=== PATIENT | male | born 2000 | race Caucasian/White ===

== ENCOUNTER 2020-02-23 08:08 | Outpatient (REF) | payer OTHER, SELFPAY | END 2020-02-23 08:09 | disposition home or self-care (01) | LOC: HO.LAB 08:08 | PROVIDERS: Visit Provider Internal Medicine | DX: Z20.828 Contact with and (suspected) exposure to other viral communicable diseases (principal) | CPT/HCPCS: C9803; U0003 ==

== ENCOUNTER 2020-04-25 07:47 | Outpatient (REF) | payer OTHER, SELFPAY | END 2020-04-25 07:48 | disposition home or self-care (01) | LOC: HO.LAB 07:47 | PROVIDERS: PCP Pediatrics; Visit Provider Internal Medicine | DX: Z20.822 Contact with and (suspected) exposure to COVID-19 (principal) | CPT/HCPCS: 36415; C9803; U0003 ==

== ENCOUNTER 2021-03-06 18:32 | Emergency (ER) | payer OTHER, SELFPAY ==
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
[2021-03-06] MEDS: Ondansetron ODT 4 MG TAB.RAPDIS TRANSLINGU (21:24)
[2021-03-06 21:26] VITALS: BP 158/96; PULSE 84; RESP 18; TEMP 36.9; O2SAT 99; BMI 28.2
== END 2021-03-06 21:33 | disposition home or self-care (01) ==
PROVIDERS: Emergency Provider Internal Medicine
DX: S16.1XXA Strain of muscle, fascia and tendon at neck level, initial encounter (principal); V86.05XA Driver of 3- or 4- wheeled all-terrain vehicle (ATV) injured in traffic accident, initial encounter; Y93.I9 Activity, other involving external motion; Y92.9 Unspecified place or not applicable; Y99.9 Unspecified external cause status
CPT/HCPCS: 99283

== ENCOUNTER 2023-05-31 11:26 | Emergency (ER) | payer OTHER, SELFPAY ==
--- NOTE | ~2023-05-31 | CT_ITS ---
EXAMINATION: CT MAXILLOFACIAL WITHOUT CONTRAST CLINICAL INFORMATION: Right-sided mastoid and facial swelling. COMPARISON: None available. TECHNIQUE: Multidetector helical imaging was performed in the axial plane without and following the administration of 85 mL of Omnipaque 350 intravenous contrast. Generation of coronal and sagittal reformatted images. This CT examination was performed using dose optimization techniques as appropriate, variously including the following: *Automated exposure control *Adjustment of mA and/or kV according to patient size (this includes techniques or standardized protocols for targeted exams where dose is matched to indication/reason for exam; i.e. extremities or head) *Use of iterative reconstruction technique DLP: 311 mGy-cm FINDINGS: FRONTAL SINUSES AND DRAINAGE PATHWAYS: The frontal sinuses are clear. The frontoethmoidal recesses are patent. MAXILLARY SINUSES AND DRAINAGE PATHWAYS: Mild mucosal thickening of the maxillary sinuses. The maxillary ostia and infundibula are patent. ETHMOID SINUSES: Mild mucosal thickening of the ethmoid air cells. The ethmoid roofs appear symmetric and intact. SPHENOID SINUS AND DRAINAGE PATHWAYS: Minimal mucosal thickening of the sphenoid sinus. The sphenoethmoidal recesses are patent. The carotid canals are normally covered by bone. NASAL PASSAGE: Mild mucosal thickening of the nasal passages. Mild leftward nasal septal deviation. ORBITS: Normal appearance of the osseous orbits. The lamina papyracea are intact. No significant preseptal or retrobulbar edema. Normal appearance of the globes. Normal symmetric appearance of the extraocular musculature. No abnormalities of the intraconal or extraconal adipose tissue. Normal appearance of the optic nerve sheaths. Normal appearance of the lacrimal glands. No orbital fluid collections. No abnormalities of the orbital apices. TEMPOROMANDIBULAR JOINTS: The temporomandibular joints remain well aligned. Normal appearance of the temporomandibular joints. ADDITIONAL RELEVANT FINDINGS: Moderate hyperemic edema of the right-sided external ear and superior periauricular soft tissues. There is an apparent peripherally enhancing collection within the superior right-sided appears to soft tissues, measuring approximately 2.5 x 1.3 x 1.7 cm. Mild smooth mucosal thickening of the right external auditory canal. No demonstrated associated osseous erosions. No evidence of maxillofacial bone fractures. The zygomatic arches remain intact. No nasal bone fracture. No evidence of mandibular or maxillary fracture. No significant maxillary/mandibular periapical disease. Mild right-sided mastoid effusion. The left-sided mastoid air cells and middle ear cavity remain well aerated. Congenital nonfusion of the posterior arch of C1. Limited evaluation of the intracranial structures without significant abnormalities. The premaxillary, retromaxillary, pterygopalatine fossa, temporal fossa, and parapharyngeal adipose tissue is maintained. No demonstrated soft tissue abnormalities within the intrinsic tissues of the tongue. CT/CT facial bones w IV con IMPRESSION: 1. There appears to be a small peripherally enhancing collection within the superior right-sided periauricular soft tissues,, suggestive of developing abscess formation. No demonstrated associated osseous erosions. Small right-sided mastoid effusion. 2. Mild sinonasal mucosal disease. Mild leftward nasal septal deviation.
[2023-05-31 11:42] VITALS: BP 160/83; PULSE 102; RESP 20; TEMP 37.1; O2SAT 98; BMI 32.3
--- NOTE | 2023-05-31 11:45 | ED_ITS ---
HPI - General Adult General Chief complaint: Ear Problems Stated complaint: cellulitis on face spreading to eye Time Seen by Provider: 05/31/23 17:34 Source: patient Mode of arrival: ambulatory Limitations: no limitations History of Present Illness HPI narrative: Patient on diabetic noticed small swelling and redness at the tragus of right ear about a week ago seen a PP at urgent care who prescribed him Augmentin for last 2 days patient noticed swelling has increased and fluctuant and spreading to the face and the jaw unable to open his mouth because of pain no fever no chills had similar infection but less severe about 5 years ago no history of MRSA infection Related Data Previous Rx's Medication Instructions Recorded cephalexin 500 mg capsule 500 mg PO QID 10 days #40 caps 05/31/23 doxycycline hyclate 100 mg tablet 100 mg PO BID #20 tabs 05/31/23 ibuprofen 600 mg tablet 600 mg PO Q6H PRN fever or pain 05/31/23 #30 tabs Allergies Allergy/AdvReac Type Severity Reaction Status Date / Time No Known Allergies Allergy Verified 05/31/23 11:47 Review of Systems 2 Review of Systems: Yes all other systems are reviewed and are negative [facility] Social History Social History Alcohol intake: current Alcohol intake frequency: 0-2 drinks per day Smoked in Last 30 Days: No Use of substances other than those prescribed or required for medical reasons: No Advance Directives: No Advance Directives Information Provided: Yes Physical Exam ED Vital Signs: Vital Signs - 24 hr 05/31/23 11:42 05/31/23 17:22 05/31/23 17:54 Temperature 98.8 F 98.8 F 99.4 F Pulse Rate 102 H 94 96 Respiratory Rate 20 18 16 Blood Pressure 160/83 H 183/103 H 139/93 H Pulse Oximetry 98 99 97 Oxygen Delivery Method Room Air Room Air Room Air 05/31/23 19:54 05/31/23 22:00 Temperature 98.6 F 98.3 F Pulse Rate 91 89 Respiratory Rate 16 16 Blood Pressure 130/77 124/79 Pulse Oximetry 97 97 Oxygen Delivery Method Room Air Room Air BMI result Body Mass Index 32.3 Appearance: Alert. Oriented X3. No acute distress. HEENT: Pharynx normal. Oral Mucosa moist SWELLING OF THE RIGHT FRONT OF THE EAR AND THE CHEEK Neck: Normal inspection. Neck supple. CVS: Normal heart rate and rhythm. Pulses normal. Respiratory: No respiratory distress. Equal air entry bilateral, Abdomen: Soft and nontender. Bowel sounds are present, Skin: Skin warm and dry. Normal skin color. Normal skin turgor. Extremities: No lower extremity edema. No calf tenderness Neuro: Oriented X 3. [facility] Face images: 2 1. Fluctuant swelling in from the right ear with surrounding cellulitis spreading all the way to the face no crepitus Course Course Course Narrative: RME:?22 yo male here for eval of facial cellulitis, now expanding into right lower eye. He was diagnosed with otitis media 6 days ago & began taking amox and neomycin polymyxin drops 6 days ago, taking as prescribed without improvement. Taking ibuprofen at home. Denies blurred vision, double vision or vision loss, pain with eye movements. Nausea, vomiting, hearing changes. PE: Pain with manipulation of right pinna. + right mastoid tenderness, + swelling to right tragus. EOMs intact without entrapment or pain. Swelling to right side of face, periorbital swelling. ct, labs ordered Full HPI, ROS and PE to be performed by the primary ED provider. Medications Administered Discontinued Medications Generic Name Dose Route Start Last Admin Trade Name Freq PRN Reason Stop Dose Admin Vancomycin HCl 2,000 mg in 500 mls @ 250 mls/hr 05/31/23 17:46 05/31/23 22:13 Vancomycin/Ns IV 05/31/23 19:45 Infused ONCE ONE Infusion Iohexol 85 ml 05/31/23 18:22 05/31/23 18:25 Iohexol 350 Mg/Ml 100 Ml Infus..Btl IV 05/31/23 18:23 85 ml ONCE ONE Administration Ketorolac Tromethamine 30 mg 05/31/23 18:06 05/31/23 18:52 Ketorolac Tromethamine 30 Mg/Ml Vial IVPUSH 05/31/23 18:07 30 mg ONCE ONE Administration Lidocaine HCl 2 ml 05/31/23 17:45 05/31/23 18:52 Lidocaine Hcl 1 % Mpf 2 Ml Vial INFILTRATI 05/31/23 17:46 2 ml ONCE ONE Administration Procedures Abscess I/D Site: face Side (if applicable): right Local Anesthetic: lidocaine 1% Amount of anesthesia used (mL): 2 Technique: incised with blade Amount of fluid expressed (mL): 2 Sent for culture/gram staining?: Yes Irrigation: No Packing used?: none Medical Decision Making Medical Decision Making [facility] Narrative: Patient with Right facial abscess with cellulitis abscess was drained and pus was sent for culture patient was given vancomycin 2 g in the ER patient improved much after draining the abscess was able to open his mouth without significant discomfort CT scan showed superficial inflammation no deeper abscesses patient will be discharging home on doxycycline and Keflex to cover the staph infection Differential Diagnosis Differential Diagnoses: The differential diagnosis associated with the presentation includes Abscess/cellulitis/deeper neck space abscess Admission/Observation Consideration of admission/observation: Escalation of care including admission/observation considered Lab Data [facility] Lab Attestation statement: I reviewed the patient's lab results. 05/31/23 13:04 05/31/23 13:04 Labs: Lab Results 05/31/23 05/31/23 Range/Units 13:04 18:00 WBC 10.9 H (4.8-10.8) X10*3/uL RBC 4.65 (4.60-5.80) X10*6/uL Hgb 14.3 (14.0-18.0) g/dl Hct 41.1 L (42.0-52.0) % MCV 88.4 (80.0-98.0) fL MCH 30.8 (27.0-33.0) pg MCHC 34.8 (31.0-36.0) g/dl RDW 11.9 (11.0-16.0) % Plt Count 333 (160-400) X10*3/uL MPV 8.5 L (9.4-12.4) fL Immature Gran % (Auto) 1.0 H (0.0-0.4) % Neut % (Auto) 63.5 (45-73) % Lymph % (Auto) 24.8 (20-40) % Cooper % (Auto) 8.5 (2-11) % Eos % (Auto) 1.8 (0-4) % Baso % (Auto) 0.4 (0-2) % Lymph # (Auto) 2.7 (1.2-4.9) X10*3/uL Cooper # (Auto) 0.9 (0.1-1.2) X10*3/uL Eos # (Auto) 0.2 (0.0-0.4) X10*3/uL Baso # (Auto) 0.0 (0.0-0.2) X10*3/uL Abs Immat Gran (auto) 0.11 H (0.00-0.03) X10*3/uL Absolute Neuts (auto) 6.9 (2.0-8.3) x10*3/uL Absolute Nucleated RBC 0.000 (0.0-0.012) X10*3/uL Nucleated RBC % (auto) 0.0 (0.0-0.2) /100WBC ESR 30 H (0-15) MM/HR Sodium 140 (135-145) mmol/L Potassium 4.1 (3.3-5.1) mmol/L Chloride 102 (96-108) mmol/L Carbon Dioxide 29 (22-29) mmol/L Anion Gap 13 (12-20) BUN 10 (9-16) mg/dL Creatinine 0.83 (0.5-1.4) mg/dL Estim Creat Clear Calc 145.9 Estimated GFR > 60 Random Glucose 92 (60-115) mg/dL Lactic Acid 1.2 1.2 (0.5-2.0) mmol/L Calcium 10.2 (8.4-10.2) mg/dL C-Reactive Protein 4.33 H (< or = 0.50) mg/dL Independent Interpretation I performed an independent interpretation of an: CT Scan Radiology Impression Discussion of test interpretation with radiology: I have reviewed the radiologist's reading. Radiologist Impression: CT/CT facial bones w IV con IMPRESSION: 1. There appears to be a small peripherally enhancing collection within the superior right-sided periauricular soft tissues,, suggestive of developing abscess formation. No demonstrated associated osseous erosions. Small right-sided mastoid effusion. 2. Mild sinonasal mucosal disease. Mild leftward nasal septal deviation. Discharge Plan Discharge Clinical Impression: Cellulitis and abscess of face Patient Disposition: Home, Self-Care Instructions: Cellulitis (ED), Abscess Incision and Drainage (DC) Additional Instructions: Take antibiotic as prescribed Warm packs Report to the ER if worsening of swelling/increased pain/ high fever Prescriptions: New cephalexin 500 mg capsule 500 mg PO QID 10 Days Qty: 40 0RF ibuprofen 600 mg tablet 600 mg PO Q6H PRN (Reason: fever or pain) Qty: 30 0RF doxycycline hyclate 100 mg tablet 100 mg PO BID Qty: 20 0RF Stand Alone Forms: Work/School Release Interventions: ED Discharge Assessment Last Done: 05/31/23 23:02 Discharge Date/Time: 05/31/23 23:03
[2023-05-31 13:10] LABS: MANUAL DIFF FLAG NO
[2023-05-31 13:21] LABS: Lactic Acid 1.2 mmol/L (0.5-2.0)
[2023-05-31 13:24] LABS: Anion Gap 13 (12-20); Blood Urea Nitrogen 10 mg/dL (9-16); C Reactive Protein 4.33 mg/dL (< or = 0.50); Calcium 10.2 mg/dL (8.4-10.2); Carbon Dioxide 29 mmol/L (22-29); Chloride 102 mmol/L (96-108); Creatinine Clr Calc Pharmacy 145.9; Estimated Glomerular Filt Rate > 60; Glucose Random 92 mg/dL (60-115); Potassium 4.1 mmol/L (3.3-5.1); Sodium 140 mmol/L (135-145)
[2023-05-31 13:26] LABS: Basophils Percent Auto 0.4 % (0-2); Eosinophils Absolute Auto 0.2 X10*3/uL (0.0-0.4); Eosinophils Percent Auto 1.8 % (0-4); Hematocrit 41.1 % (42.0-52.0); Hemoglobin 14.3 g/dl (14.0-18.0); Imm Gran Abs Auto 0.11 X10*3/uL (0.00-0.03); Lymphocytes Absolute Auto 2.7 X10*3/uL (1.2-4.9); Lymphocytes Percent Auto 24.8 % (20-40); Mean Corpuscular HGB Conc 34.8 g/dl (31.0-36.0); Mean Corpuscular Hemoglobin 30.8 pg (27.0-33.0); Mean Corpuscular Volume 88.4 fL (80.0-98.0); Mean Platelet Volume 8.5 fL (9.4-12.4); Monocytes Absolute Auto 0.9 X10*3/uL (0.1-1.2); Monocytes Percent Auto 8.5 % (2-11); Neutrophils Absolute Auto 6.9 x10*3/uL (2.0-8.3); Neutrophils Percent Auto 63.5 % (45-73); Platelet Count 333 X10*3/uL (160-400); Red Blood Count 4.65 X10*6/uL (4.60-5.80); Red Cell Distribution Width 11.9 % (11.0-16.0); White Blood Count 10.9 X10*3/uL (4.8-10.8)
[2023-05-31 13:59] LABS: Erythrocyte Sedimentation Rate 30 MM/HR (0-15)
--- NOTE | 2023-05-31 16:30 | PC.NURSE ---
Pt enters my care- pt is c/o R sided pain and swollen ear/face- pmhx of cellulites to the face- pt states it is difficult for him to chew.
[2023-05-31 17:22] VITALS: BP 183/103; PULSE 94; RESP 18; TEMP 37.1; O2SAT 99
[2023-05-31 17:54] VITALS: BP 139/93; PULSE 96; RESP 16; TEMP 37.4; O2SAT 97
[2023-05-31 18:20] LABS: Lactic Acid 1.2 mmol/L (0.5-2.0)
[2023-05-31] MEDS: iohexoL 350 MG/ML 100 ML INFUS..BTL 85 ML IV (18:25)
--- NOTE | 2023-05-31 18:25 | MHC.EDTECH ---
Both sets of blood culture and lactic acid drawn ,wound Culture Collected all sent to lab ,Vitals taken .
[2023-05-31] MEDS: vancomycin/NS 2,000 MG/500 ML PLAST..BAG 250 MG IV (18:43)
[2023-05-31] MEDS: Ketorolac Tromethamine 30 MG/ML VIAL IVPUSH (18:52)
[2023-05-31] MEDS: Lidocaine HCl 1 % MPF 2 ML VIAL INFILTRATI (18:52)
--- NOTE | 2023-05-31 19:06 | PC.NURSE ---
Report to Zeina BECKMAN
[2023-05-31 19:54] VITALS: BP 130/77; PULSE 91; RESP 16; TEMP 37; O2SAT 97
[2023-05-31 22:00] VITALS: BP 124/79; PULSE 89; RESP 16; TEMP 36.8; O2SAT 97
--- NOTE | 2023-05-31 22:12 | MHC.EDTECH ---
2200 VITALS TAKEN ,PT WAS HUNGRY ,HAM SANDWICH AND SANDEEP KARTHIKEYAN GIVEN .
== END 2023-05-31 23:03 | disposition home or self-care (01) ==
PROVIDERS: Physician Assistant Medical; Emergency Provider Internal Medicine
DX: L03.211 Cellulitis of face (principal); R51.9 Headache, unspecified; Z79.899 Other long term (current) drug therapy
CPT/HCPCS: 10060; 36415; 70487; 80048; 83605; 85025; 85652; 86140; 87040; 87070; 87205; 96361; 96374; 99284; J1885; J3370; Q9967

== ENCOUNTER 2023-09-12 15:41 | Outpatient (AMB) | payer OTHER, SELFPAY ==
[2023-09-12 15:43] VITALS: BP 130/80; PULSE 83; TEMP 36.7; O2SAT 97
--- NOTE | 2023-09-12 15:43 | AM.OFFWIN_ITS ---
Intake Vital Signs 09/12/23 15:43 Height 5 ft 6 in BP 130/80 Blood Pressure Location Rt brachial Position Sitting Pulse 83 Pulse Source Pulse Oximeter Temp 98.1 F Temp Source Oral Pulse Oximetry (%) 97 Oxygen Delivery Method Room Air Intake Visit Reasons: EP chest pain, SOB Intake Note: pt is here for shortness of breath with chest dut[place] that is dull and has ongoing cough since november. has hx of inflammation on rib cage Patient Tobacco Use Status: Never used Tobacco Allergies No Known Allergies Allergy (Verified 09/12/23 15:51) Do you need a note to return to daycare/school/sports/work: No HPI HPI Comments History of Present Illness Details 22 y/o male patient who presents to walk in clinic with c/o left sided chest pain, and SOB for 2 days. Denies palpitations, wheezing, dizziness or headaches. Pt also Acid reflux. He does endorse poor diet. H/o Pneumothorax in the past. Pt does endorse stressful work environment. [facility] Social History Alcohol intake: current Alcohol intake frequency: 0-2 drinks per day Patient Tobacco Use Status: Never used Tobacco Review of Systems Const All systems reviewed & are unremarkable except as noted in HPI and below Physical Exam Vital Signs: Last Vital Signs Temp 98.1 F 09/12/23 15:43 Pulse 83 09/12/23 15:43 BP 130/80 09/12/23 15:43 Pulse Ox 97 09/12/23 15:43 Oxygen Delivery Method Room Air 09/12/23 15:43 Const General: comfortable and no acute distress Nutritional Appearance: overweight Orientation/consciousness: patient oriented x3 HEENT Head: Yes normocephalic Ears: external ears normal and TM's normal bilaterally General nose exam: Normal nasal mucous membranes and turbinates present Face and sinus: Yes sinuses nontender Mouth: moist mucous membranes Throat: Yes posterior oropharynx normal Resp Effort & Inspection: normal respiratory effort and able to speak in complete sentences Auscultation: clear to auscultation bilaterally, no crackles, no rales, no rhonchi and no wheezes Cardio Rate: regular rate Rhythm: regular rhythm Neuro General: patient oriented x3, gait normal and moves all extremities Psych Speech and movement: Normal speech and movement present Assessment & Plan Assessment & Plan (1) Chest pain: Code(s): R07.9 - Chest pain, unspecified Qualifiers: Chest pain type: other chest pain Qualified Code(s): R07.89 - Other chest pain Plan: - Chest Xray ordered - Advised Pt to go to Emergency Room if pain continues - Costochondritis vs Cardiac Orders: Orders XR chest 2V Today R07.89 - Other chest pain Medications: Discontinued cephalexin Discontinued Reason: Patient Completed Course 500 mg PO QID 10 days 40 caps 0RF doxycycline hyclate Discontinued Reason: Patient Completed Course 100 mg PO BID 20 tabs 0RF ibuprofen Discontinued Reason: Patient Completed Course 600 mg PO Q6H PRN 30 tabs 0RF fever or pain Coding Level of Care Code Est Pt Level 3 (95978) Diagnoses Other chest pain R07.89 Chest pain type: other chest pain Time Spent (min) 15
== END 2023-09-12 16:43 | disposition home or self-care (01) ==
PROVIDERS: PCP Family Medicine; Visit Provider Nurse Practitioner Family
DX: R07.89 Other chest pain (principal)
CPT/HCPCS: 99213

== ENCOUNTER 2023-09-12 16:07 | Outpatient (REF) | payer OTHER, SELFPAY ==
--- NOTE | ~2023-09-12 | XR_ITS ---
EXAMINATION: XR CHEST CLINICAL INFORMATION: Chest pain COMPARISON: None available. TECHNIQUE: 2 views of the chest were obtained. FINDINGS: No significant abnormality is noted involving the heart, lungs, mediastinum, bony thorax or soft tissues. XR/XR chest 2V IMPRESSION: Unremarkable examination.
== END 2023-09-12 16:08 | disposition home or self-care (01) ==
LOC: HO.HMGCX 16:07
PROVIDERS: PCP Family Medicine; Visit Provider Nurse Practitioner Family
DX: R07.89 Other chest pain (principal)
CPT/HCPCS: 71046

== ENCOUNTER 2023-12-06 09:42 | Outpatient (AMB) | payer BC, SELFPAY ==
--- NOTE | 2023-12-06 09:49 | A.OFFPC_ITS ---
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 ?? Prior PCP:?[facility] Last office visit/CPE:? 4-5 yrs Acute issue(s):? Allergies - needs Immunology appt. Throat scratchiness & GI sxs Cyst at ear - sees derm in [facility] ?? PMHx:? OCD, Tourettes, PTX - resolved w/o Chest tube 2015. Cellulitis SurgHx:?None FHx:? Mom: Lupus, Thyroiditis. SocHx: Nonsmoker. EtOH Occassional up to 6 per episode. No drugs HPI Comments History of Present Illness Details Documentation assistance for Filiberto Plaza MD, was provided by Werner Samson,? Ship Runner on 12/06/2023 at 10:05 AM ALEXANDRA. Tatum, Dr. Plaza, have read, observed, and verified documentation. [facility] Medical History (Updated 12/06/23 @ 10:06 by eWrner Samson) History of pneumothorax Social History (Updated 12/06/23 @ 09:53 by Haroon Kim) Alcohol intake: current Alcohol intake frequency: 0-2 drinks per day Patient Tobacco Use Status: Never used Tobacco Use of substances other than those prescribed or required for medical reasons: No Questionnaire PHQ-9 Over the last 2 weeks, how often have you been bothered by any of the following problems? 1. Little interest or pleasure in doing things: not at all 2. Feeling down, depressed, or hopeless: not at all 3. Trouble falling or staying asleep, or sleeping too much: not at all 4. Feeling tired or having little energy: several days 5. Poor appetite or overeating: not at all 6. Feeling bad about yourself - or that you are a failure or have let yourself or your family down: not at all 7. Trouble concentrating on things, such as reading the newspaper or watching television: not at all 8. Moving or speaking so slowly that other people could have noticed. Or the opposite - being so fidgety or restless that you have been moving around a lot more than usual: nearly every day 9. Thoughts that you would be better off or of hurting yourself in some way: not at all Total score: 4 Depression Screening Interpretation: Negative Depression Screening Done: Yes 11641 - PHQ-9 Billing: Yes Source: Developed by Drs. Abdirashid Curtis, Suzie Lacy, Jhonny Babcock and colleagues, with an educational kodi from [employer]. Thrive Questionnaire Date Thrive assessed: 12/06/23 I am a: Patient What is your living situation today?: I have a steady place to live Within the past 12 months, did the food you bought not last and you didn't have the money to get more?: Never true Within the past 12 months, did you worry whether your food would run out before you got money to buy more?: Never true Do you have trouble paying for medicines?: No Do you have trouble getting transportation to medical appointments?: No Do you have trouble paying your heating and electricity bill?: No Do you have trouble taking care of your child, family member or friend?: No Do you have trouble with day-to-day activities such as bathing, preparing meals, shopping, managing finances, etc.?: No Are you currently unemployed and looking for a job?: No Are you interested in more education?: Yes Please select the resources that you would like help with: None Currently or been in a relationship where the following occur: No concerns reported THRIVE Score: 0 AUDIT C Alcohol Use Questionnaire (AUDIT-C) 1. How often do you have a drink containing alcohol?: Monthly or less 2. How many drinks containing alcohol do you have on a typical day when you are drinking?: 7 to 9 3. How often do you have six or more drinks on one occasion?: Less than monthly Total Score: 5 Score Reviewed/Action Taken: Yes GURVINDER-7 AMB Questionnaire GURVINDER-7 Date GURVINDER - 7 assessed: 12/06/23 Feeling nervous, anxious, or on edge: 0 = Not at all Not being able to stop or control worryin = Not at all Worrying too much about different things: 1 = Several days Trouble relaxin = Not at all Being so restless that it is hard to sit still: 3 = Nearly every day Becoming easily annoyed or irritable: 0 = Not at all Feeling afraid as if something awful might happen: 0 = Not at all Total GURVINDER-7 score (0-4 normal; 5-9 mild; 10-14 moderate; 15-21 severe): 4 Source: Developed by Drs. Abdirashid Curtis, Suzie Lacy, Jhonny Babcock and colleagues, with an educational kodi from [employer]. GURVINDER-7 Assessment Billing GURVINDER-7 Assessment Tool: GURVINDER-7 Assessment 13297 Review of Systems Const Denies chills, Denies fatigue, Denies fever(s), Denies headache(s) and Denies weakness ENT Denies dizziness and Denies headache(s) Card Denies chest pain, Denies lightheadedness, Denies dyspnea and Denies other (Palpitations) Resp Denies cough, Denies dyspnea, Denies wheezing and Denies other ( shortness of breath) Musc Denies numbness and Denies tingling Neuro Denies dizziness, Denies headache(s), Denies numbness, Denies tingling, Denies paresthesias and Denies weakness Psych Denies anxiety and Denies depression Endo Denies fatigue Aller/Immun Denies wheezing Physical exam (Primary Care) Vital Signs: Last Vital Signs Temp 97.3 F 12/06/23 09:53 Pulse 86 12/06/23 09:53 Resp 10 L 12/06/23 09:53 BP 100/60 12/06/23 09:53 Pulse Ox 96 12/06/23 09:53 Oxygen Delivery Method Room Air 12/06/23 09:53 BMI result Body Mass Index 31.5 Tobacco/Smoking Status: Tobacco use Status Patient Tobacco Use Status Never used Tobacco 12/06/23 09:53 PHQ-9: PHQ-9 Score PHQ-9: Total score 4 12/06/23 09:56 Depression Screening Interpretation: Negative Thrive Assessment: Date of Thrive Assessment Date Thrive assessed 12/06/23 12/06/23 09:56 Currently or been in a relationship where the following occur: No concerns reported Const General: no acute distress and well developed Nutritional Appearance: well nourished Orientation/consciousness: patient oriented x3 HENMT Head: Yes normocephalic and Yes atraumatic Eyes General: appearance normal, both eyes and all related structures Pupils: Equal, round and reactive pupils present EOM: EOMs intact bilaterally Resp Effort & Inspection: normal respiratory effort Auscultation: clear to auscultation bilaterally Cardio Rate: regular rate Rhythm: regular rhythm Heart sounds: S1 normal heart sound present, S2 normal heart sound present, no gallops, no murmurs and no rubs Neuro General: patient oriented x3 and gait normal Cranial nerves: Yes Equal, round and reactive pupils present Psych Affect: normal affect Assessment and Plan Assessment & Plan (1) Ear cysts: Code(s): Q18.1 - Preauricular sinus and cyst Plan: Follow-up?with?dermatology (2) Allergy, food: Code(s): Z91.018 - Allergy to other foods Plan: Patient?has?food?allergies?which?results?in?scratchy?throat and?GI?symptoms. Advised?he?take?Benadryl?at?the?1st?sign?of?these?symptoms. Will?give?him?an?EpiPen?in?case?symptoms?progress Referring?him?to?immunology?for?testing?and?treatment (3) Seasonal allergies: Code(s): J30.2 - Other seasonal allergic rhinitis Plan: Patient?uses?[place] Stable (4) OCD (obsessive compulsive disorder): Code(s): F42.9 - Obsessive-compulsive disorder, unspecified Plan: Stable (5) Tourette syndrome: Code(s): F95.2 - Tourette's disorder Plan: Stable (6) Laboratory exam ordered as part of routine general medical examination: Code(s): Z00.00 - Encounter for general adult medical examination without abnormal findings Plan: Check?labs Orders: Orders Comprehensive [place]. Panel Fast Today Z00.00 - Encounter for general adult medical examination without abnormal findings Lipid Panel Today Z00.00 - Encounter for general adult medical examination without abnormal findings Microalbumin, Random (w Creat) Today I10 - Essential (primary) hypertension UA and rflx microscopic Today Z00.00 - Encounter for general adult medical examination without abnormal findings CT NG by PCR Today Z11.3 - Encounter for screening for infections with a predominantly sexual mode of transmission HIV Ab/Ag Today Z11.3 - Encounter for screening for infections with a predominantly sexual mode of transmission Hepatitis B,C Profile Today Z11.3 - Encounter for screening for infections with a predominantly sexual mode of transmission TSH reflex Free T4 Today Z00.00 - Encounter for general adult medical examination without abnormal findings Syphilis Screen Today Z11.3 - Encounter for screening for infections with a predominantly sexual mode of transmission Referrals Allergy & Immunology Referral J30.2 - Other seasonal allergic rhinitis, Z91.018 - Allergy to other foods Medications: New epinephrine (EpiPen 2-James) 0.3 mg (0.3 mL) IM Q4H 30 days PRN 2 ea 2RF anaphylaxis Coding Level of Care Code New Pt Level 3 (69454) Diagnoses Ear cysts Q18.1 Allergy, food Z91.018 Seasonal allergies J30.2 OCD (obsessive compulsive disorder) F42.9 Tourette syndrome F95.2 Laboratory exam ordered as part of routine general medical examination Z00.00 Additional Codes GURVINDER-7 Assessment Billing - GURVINDER-7 Assessment Tool: GURVINDER-7 Assessment 57107 ([id number])
[2023-12-06 09:53] VITALS: BP 100/60; PULSE 86; RESP 10; TEMP 36.3; O2SAT 96; BMI 31.5
== END 2023-12-06 10:11 | disposition home or self-care (01) ==
PROVIDERS: PCP Family Medicine; Visit Provider Family Medicine
DX: J30.2 Other seasonal allergic rhinitis (principal); Q18.1 Preauricular sinus and cyst; Z91.018 Allergy to other foods; F42.9 Obsessive-compulsive disorder, unspecified; F95.2 Tourette's disorder
CPT/HCPCS: 99214

== ENCOUNTER 2023-12-23 15:07 | Outpatient (AMB) | payer BC, SELFPAY ==
--- NOTE | 2023-12-23 15:09 | MHC.OFFWIV ---
Intake Vital Signs 12/23/23 15:13 12/23/23 15:42 Height 5 ft 5 in Weight 192 lb BMI 31.9 BP 128/66 Blood Pressure Location Rt brachial Position Sitting Pulse 122 H 120 H Pulse Source Pulse Oximeter Temp 99.8 F Temp Source Oral Pulse Oximetry (%) 98 Oxygen Delivery Method Room Air Intake Visit Reasons: EP SOB,sinus, chest no, dizzy Intake Note: pt c/o SOB, sinus pressure, chest congestion, dizziness. Started yesterday Patient Tobacco Use Status: Never used Tobacco Allergies No Known Allergies Allergy (Verified 12/23/23 15:16) Do you need a note to return to daycare/school/sports/work: Yes HPI HPI Comments History of Present Illness Details Patient is a 23-year-old male complaining of shortness of breaths, sinus pressure, dizziness as and feeling off balance, subjective fever and chest congestion for 2 days. He states he has a history of asthma as a child but has not taken any asthma medications in 9 years. He states that when he was 14 years old he had an unprovoked pneumothorax but did not need a chest tube. He also states he has a history of bilateral ear cellulitis. He denies chest pain. He has not taken any medications to make himself feel better [facility] Medical History (Updated 12/23/23 @ 16:04 by Verna Milligan PA-C) History of pneumothorax Social History (Updated 12/06/23 @ 09:53 by Haroon Kim MA) Alcohol intake: current Alcohol intake frequency: 0-2 drinks per day Patient Tobacco Use Status: Never used Tobacco Review of Systems Const All systems reviewed & are unremarkable except as noted in HPI and below Physical Exam Vital Signs: Last Vital Signs Temp 99.8 F 12/23/23 15:13 Pulse 122 H 12/23/23 15:13 BP 128/66 12/23/23 15:13 Pulse Ox 98 12/23/23 15:13 Oxygen Delivery Method Room Air 12/23/23 15:13 BMI result Body Mass Index 31.9 Const General: cooperative, healthy appearing, comfortable and no acute distress Orientation/consciousness: patient oriented x3 Limitations: no limitations HEENT Head: Yes normal to inspection Ears: hearing grossly normal bilaterally, external ears normal and TM's normal bilaterally General nose exam: Normal external nose present, Normal nares present and No nasal discharge present Face and sinus: Yes normal facial exam and Yes sinuses nontender Mouth: Normal oral and palatal mucosa present and moist mucous membranes Throat: Yes tonsils normal, Yes uvula midline and Yes posterior oropharynx abnormal (Erythema) Eyes General: appearance normal, both eyes and all related structures Neck Neck: Yes normal visual inspection Resp Effort & Inspection: normal respiratory effort, able to speak in complete sentences, Actively coughing, no respiratory distress, not tachypneic, no tripod positioning and no use of accessory muscles Auscultation: clear to auscultation bilaterally Cardio Rate: tachycardic Rhythm: regular rhythm Heart sounds: normal S1 and S2 Skin General skin exam: no rashes or lesions noted Neuro General: patient oriented x3 Extrem General: Yes normal to inspection and Yes no clubbing, cyanosis or edema Office Procedures EKG Details: Sinus tach at 117 beats per minute [id number], Complete Assessment & Plan Assessment & Plan (1) URI (upper respiratory infection): Code(s): J06.9 - Acute upper respiratory infection, unspecified Plan: Patient is tachycardic, however it sinus and it did come down to 100 17 beats per minute while he was in the office as per EKG. Did teach the patient how to check his heart rate and told him to monitor it, it is likely elevated due to his fever but he needs to make sure it comes down when he is feeling better and is not febrile. Recommended he follow up with Dr. Plaza regarding this issue if the tachycardia persists. Recommended using [id number] medications to treat his symptoms, and we did send a flu COVID and RSV Plan See above Orders: Orders SARS-CoV2/FLU/RSV Today J06.9 - Acute upper respiratory infection, unspecified Coding Level of Care Code Est Pt Level 4 (09594) Diagnoses URI (upper respiratory infection) J06.9 CPT Codes EKG - CPT: 91868-[id number], Complete ([id number])
[2023-12-23 15:13] VITALS: BP 128/66; PULSE 122; TEMP 37.7; O2SAT 98; BMI 31.9
[2023-12-23 15:42] VITALS: PULSE 120
== END 2023-12-23 16:11 | disposition home or self-care (01) ==
PROVIDERS: PCP Family Medicine; Visit Provider Physician Assistant
DX: J06.9 Acute upper respiratory infection, unspecified (principal)
CPT/HCPCS: 93000; 99214

== ENCOUNTER 2023-12-23 15:18 | Outpatient (REF) | payer BC, SELFPAY ==
[2023-12-23 17:37] LABS: Influenza A PCR NEGATIVE (Negative); Influenza B PCR NEGATIVE (Negative); Resp Syncy Virus RNA Qual PCR NEGATIVE (Negative); SARS COV2 PCR INHOUSE NEGATIVE (Negative)
== END 2023-12-23 15:19 | disposition home or self-care (01) ==
LOC: HO.LAB 15:18
PROVIDERS: Visit Provider Physician Assistant
DX: J06.9 Acute upper respiratory infection, unspecified (principal)
CPT/HCPCS: 0241U

== ENCOUNTER 2024-06-23 08:40 | Outpatient (AMB) | payer BC, SELFPAY ==
--- NOTE | 2024-06-23 09:15 | A.OFFPC_ITS ---
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 No recent labs to review. Pt notes he holds his breath in his sleep and snores loudly. 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 1. Little interest or pleasure in doing things: not at all 2. Feeling down, depressed, or hopeless: not at all 3. Trouble falling or staying asleep, or sleeping too much: not at all 4. Feeling tired or having little energy: several days 5. Poor appetite or overeating: not at all 6. Feeling bad about yourself - or that you are a failure or have let yourself or your family down: not at all 7. Trouble concentrating on things, such as reading the newspaper or watching television: not at all 8. Moving or speaking so slowly that other people could have noticed. Or the opposite - being so fidgety or restless that you have been moving around a lot more than usual: not at all 9. Thoughts that you would be better off or of hurting yourself in some way: not at all Total score: 1 Depression Screening Interpretation: Negative Depression Screening Done: Yes 30018 - PHQ-9 Billing: Yes Source: Developed by Drs. Abdirashid Curtis, Suzie Lacy, Jhonny Babcock and colleagues, with an educational kodi from [employer]. Thrive Questionnaire Date Thrive assessed: 06/23/24 I am a: Patient What is your living situation today?: I have a steady place to live Within the past 12 months, did the food you bought not last and you didn't have the money to get more?: Never true Within the past 12 months, did you worry whether your food would run out before you got money to buy more?: Never true Do you have trouble paying for medicines?: No Do you have trouble getting transportation to medical appointments?: No Do you have trouble paying your heating and electricity bill?: No Do you have trouble taking care of your child, family member or friend?: No Do you have trouble with day-to-day activities such as bathing, preparing meals, shopping, managing finances, etc.?: No Are you currently unemployed and looking for a job?: No Are you interested in more education?: Yes Please select the resources that you would like help with: None Currently or been in a relationship where the following occur: No concerns reported THRIVE Score: 0 AUDIT C Alcohol Use Questionnaire (AUDIT-C) 1. How often do you have a drink containing alcohol?: Monthly or less 2. How many drinks containing alcohol do you have on a typical day when you are drinking?: 5 or 6 3. How often do you have six or more drinks on one occasion?: Less than monthly Total Score: 4 Score Reviewed/Action Taken: Yes GURVINDER-7 AMB Questionnaire GURVINDER-7 Date GURVINDER - 7 assessed: 06/23/24 Feeling nervous, anxious, or on edge: 0 = Not at all Not being able to stop or control worryin = Not at all Worrying too much about different things: 1 = Several days Trouble relaxin = Not at all Being so restless that it is hard to sit still: 0 = Not at all Becoming easily annoyed or irritable: 1 = Several days Feeling afraid as if something awful might happen: 0 = Not at all Total GURVINDER-7 score (0-4 normal; 5-9 mild; 10-14 moderate; 15-21 severe): 2 Source: Developed by Drs. Abdirashid Curtis, Suzie Lacy, Jhonny Babcock and colleagues, with an educational kodi from [employer]. GURVINDER-7 Assessment Billing GURVINDER-7 Assessment Tool: GURVINDER-7 Assessment 50623 Review of Systems Const Denies chills, Denies fatigue, Denies fever(s), Denies headache(s) and Denies weakness Eyes Denies change in vision ENT Denies dizziness, Denies headache(s), Denies hearing loss, Denies nasal congestion, Denies sinus pain, Denies sinus pressure and Denies sore throat Card Denies chest pain, Denies lightheadedness, Denies dyspnea and Denies other (palpitations) Resp Denies cough, Denies dyspnea and Denies wheezing GI Denies abdominal pain, Denies melena, Denies hematochezia, Denies change in bowel habits, Denies dyspepsia and Denies nausea Denies hematuria and Denies dysuria Musc Denies abnormal gait, Denies myalgias, Denies arthralgias, Denies numbness and Denies tingling Skin/Breast Denies rash, Denies unusual bruising and Denies wounds Neuro Denies abnormal gait, Denies dizziness, Denies headache(s), Denies memory loss, Denies numbness, Denies Sensory deficit (Neuro), Denies tingling and Denies weakness Psych Denies anxiety, Denies depression and Denies memory loss Endo Denies cold intolerance, Denies fatigue, Denies heat intolerance, Denies polydipsia and Denies polyuria Yosvany/Lymph Denies easy bleeding and Denies easy bruising Aller/Immun Denies wheezing Physical exam (Primary Care) Vital Signs: Last Vital Signs Temp 97.7 F 06/23/24 09:21 Pulse 67 06/23/24 09:21 Resp 14 06/23/24 09:21 BP 120/78 03/11/25 09:21 Pulse Ox 97 06/23/24 09:21 Oxygen Delivery Method Room Air 06/23/24 09:21 BMI result Body Mass Index 34.4 Tobacco/Smoking Status: Tobacco use Status Tobacco use date assessed 06/23/24 06/23/24 09:24 Patient Tobacco Use Status Never used Tobacco 06/23/24 09:16 e-Cigarette/Vaping Use Never Used 06/23/24 09:24 PHQ-9: PHQ-9 Score PHQ-9: Total score 1 06/23/24 09:24 Depression Screening Interpretation: Negative Thrive Assessment: Date of Thrive Assessment Date Thrive assessed 06/23/24 06/23/24 09:24 Currently or been in a relationship where the following occur: No concerns reported Const General: no acute distress, well developed, alert and awake Nutritional Appearance: well nourished Orientation/consciousness: patient oriented x3 HENMT Head: Yes normocephalic and Yes atraumatic Ears: hearing grossly normal bilaterally and TM's normal bilaterally General nose exam: Normal external nose present and Normal nares present Mouth: Normal oral and palatal mucosa present and moist mucous membranes Teeth and gingiva: dentition normal Throat: Yes posterior oropharynx normal Eyes General: appearance normal, both eyes and all related structures Pupils: Equal, round and reactive pupils present and Pupil accommodation reflex normal EOM: EOMs intact bilaterally Neck Neck: Yes normal visual inspection, Yes no lymphadenopathy and Yes trachea midline Thyroid: Thyroid normal Carotids: no bruits Lymphatic: no lymphadenopathy noted Chest Chest palpation & inspection: normal inspection of the chest Resp Other: Coarse breath sounds Effort & Inspection: normal respiratory effort Auscultation: clear to auscultation bilaterally Cardio Rate: regular rate Rhythm: regular rhythm Heart sounds: S1 normal heart sound present, S2 normal heart sound present, no gallops, no murmurs and no rubs Bruits: no abdominal aortic bruits and no carotid bruits GI Palpation (GI): No Abdominal aortic bruit present, Soft to palpation, nontender, No hepatosplenomegaly present and No Rebound tenderness present Auscultation: normal bowel sounds General: Yes no CVA tenderness Back/Spine/Pelvis Back: no CVA tenderness Cervical Spine: cervical ROM normal and No Cervical spine tenderness Thoracic/Lumbar Spine: thoraco-lumbar ROM normal, No pain with thoraco-lumbar ROM, No thoracic spinal tenderness and No lumbar spinal tenderness Skin Lesions: no lesions Rashes: no rashes Trauma: no lacerations or abrasions Wounds: no wounds Nails: normal Neuro General: patient oriented x3 Cranial nerves: Yes Equal, round and reactive pupils present Cognition (Neuro): normal cognition Gait exam (Neuro): Normal gait present Motor exam (neuro): 5/5 motor strength present throughout Sensory Exam: No Sensory deficit (Neuro) Deep tendon reflexes (DTR's): Right patellar reflex intensity grade: 2+ and Left patellar reflex intensity grade: 2+ Extrem General: Yes normal to inspection and No edema Psych Appearance: grossly normal Affect: normal affect Attitude: cooperative Thought process: Normal thought process present Coding Level of Care Code Est Pt Level 3 (55376) Est Pt Prev Care 18-39y(89287) Diagnoses Adult general medical exam Z00.00 Sleep apnea G47.30 Seasonal allergies J30.2 Additional Codes GURVINDER-7 Assessment Billing - GURVINDER-7 Assessment Tool: GURVINDER-7 Assessment 25168 ([id number]) PHQ-9 - 38506 - PHQ-9 Billing: Yes ([id number]) Assessment & Plan Assessment & Plan (1) Adult general medical exam: Code(s): Z00.00 - Encounter for general adult medical examination without abnormal f indings Category: Medical Plan: 23-year-old?male?presents?for?complete?physical?exam (2) Sleep apnea: Code(s): G47.30 - Sleep apnea, unspecified Category: Medical Plan: Patient?notes?that?he?has?been?told?he?hold?his?breath?in?his?sleep?in?snores?lo udly Referred?to?Sleep?Medicine Advised?he?sleep?on?his?side?for?now. (3) Seasonal allergies: Code(s): J30.2 - Other seasonal allergic rhinitis Category: Medical Plan: Ongoing?seasonal?allergies.??He?does?have?mildly?coarse?breath?sounds?but?otherw ise?clear He?has an?EpiPen?and?takes?a?daytime?antihistamine during?worse?parts?of?the?year. I?advised?he?start?is?now. Orders: Referrals Sleep Medicine Referral G47.30 - Sleep apnea, unspecified
[2024-06-23 09:21] VITALS: BP 120/78; PULSE 67; RESP 14; TEMP 36.5; O2SAT 97; BMI 34.4
--- OUTSIDE RECORDS SUMMARY | 2024-06-23 09:29 | XMS_ITS | Encounter Summary ---
Author Organization [facility] Address [address] [place] [address] Phone Care Team Providers Care Rotary Drum Dyer Name Role Phone Kb Avalos MD Primary Care Provider [phone] Encounter Details Date Type Department Care Team (Late st Contact Info) Description 05/04/2009 Documentation [facility] Family Medicine [address] [place] [address] Family Medicine, Physician [address] [place], [place] [id number] Social History Tobacco Use Types Packs/Day Years Used Date Smoking Tobacco: Never Assessed Sex and Gender Information Value Date Recorded Sex Assigned at Not on file Legal Sex Male 6:08 PM EDT Gender Identity Not on file Sexual Orientation Not on file documented as of this encounter Plan of Treatment Not on file documented as of this encounter Visit Diagnoses Not on filedocumented in this encounter Care Teams Rotary Drum Dyer Relationship Specialty Start Date End Date Kb Avalos MD 7 [facility] [place] [address] PCP - General 08/21/17 03/29/24 documented as of this encounter
--- OUTSIDE RECORDS SUMMARY | 2024-06-23 09:29 | XMS_ITS | Encounter Summary ---
Author Organization [facility] Address [address] [place] [address] Phone Care Team Providers Care Bindery Technician Name Role Phone Kb Avalos MD Primary Care Provider + [phone] Encounter Details Date Type Department Care Team (Late st Contact Info) Description 09/01/2017 Conversion [facility]counter [facility] [address] [place] [address] Kb Avalos MD [address] [place] [address] Social History Tobacco Use Types Packs/Day Years [...] on filedocumented in this encounter Care Teams Bindery Technician Relationship Specialty Start Date End Date Kb Avalos MD [address] [place] [address] PCP - General 08/21/17 03/29/24 documented as of this encounter
--- OUTSIDE RECORDS SUMMARY | 2024-06-23 09:29 | XMS_ITS | Clinical Summary ---
Author Organization [facility] Address [address] [place] [address] Phone Care Team Providers Care Principal Military Analyst Name Role Phone Unavailable Primary Care Provider Unavailabl e Allergies Active Allergy Reactions Criticality Noted Date Comments Cholestatin 10/26/2019 Medications diphenhydrAMINE (Benadryl Allergy) 25 MG capsule Take 12.5 mg/mL by mouth. 08/09/2008 Active Active Problems Problem Noted Date Diagnosed Date Acne vulgaris 03/06/2016 Allergic rhinitis 03/06/2016 Overview (10/22/2019): 08/23 Assessment & Plan (10/26/2019 3:24 PM EDT): Has been on denis over the spring. Generalized anxiety disorder 03/06/2016 Tourette's disorder 03/06/2016 Overview (10/22/2019): 06/22, EEG normal; 08/26; referred to neuro; dx'd with Tourette's syndrome and started on guanfacine; 08/27: Tetrabenzine started; med changed 11/27 Assessment & Plan (10/26/2019 3:24 PM EDT): Has improved over time; no meds. Immunizations Immunization Administration Dates Next Due DTaP 01/18/2005, 1,06/25/2000,05/13,03/19/2000 HPV, Quadrivalent 03/01/2014,10/29/2013,08/28/19 14 Hep A, ped/adol 03/06/2016,06/09/2015 Hep B, ped/adol 09/23/2000,01/19/2000,1999 Hib (PRP-T) 03/19/2001, 1,05/13/2000,03/19 IPV 01/18/2005, 1,05/13/2000,03/19 Influenza, injectable, quadrivalent 02/15/2015,1 05/28/2010 Influenza, injectable, quadr ivalent, preservative free 04/10/2017,03/06/2016,01/11/2014 MMR 12/21/2003,01/02/2001 Meningococcal Conj (Menactra) MCV4P 03/06/2016,1 05/28/2010 Pneumococcal Conjugate 03/19/2001,2000,05/13/2000,03/19 Tdap 03/27/2011 Typhoid, ViCPs 08/17/2015 Varicella 02/27/2007,01/02/2001 Family History Relation Name Status Comments Father Alive Maternal Grandfather brain t umor diagnosed with MALIGNANT NEOPLASM NOS Maternal Grandmother CHF casey gnosed with HEART DISEASE NOS Mother Alive Social History Tobacco Use Types Packs/Day Years Used Date Smoking Tobacco: Never Assessed Hunger/Food Answer Date Recorded In the last 12 months, did y ou or your family ever eat less than you felt you should because there wasn't enough money for food? No 10/26/2019 Stable Housing Answer Date Recorded Are you worried that in the next 2 months you may not have stable housing? No 10/26/2019 Transportation Concerns Answer Date Rec orded In the last 12 months, have you or your family ever had to go without healthcare because you didn't have a way to get there? No 10/26/2019 Hazards in Home Answer Date Recorded Think about the place you li ve. Do you have problems with any of the following? Pests (mice or roaches), mold, no/not working smoke detectors, water leaks, no window guards. No 2019 Financing Utilities Answer Date Recorde d In the last 12 months, has t he electric, gas, oil, or water company threatened to shut off your services in your home? No 10/26/2019 Safety at Home Answer Date Recorded Are you or your family worried about feeling saf e in your home? No 10/26/2019 Outside Support Answer Date Recorded Do you feel that you need mo re support from other people or programs to help you care for yourself or your family? No 10/26/2019 Understanding Health Concerns Answer Da te Recorded Do you need help understandi ng your or your child's healthcare needs (diagnosis, medications, plan, etc.)? No 10/26/2019 Financing Health Concerns Answer Date R ecorded In the last 12 months, was t here a time when your child needed to see a doctor or get medications or supplies but could not because of cost? No 10/26/2019 Missing School or Work Answer Date Sai rded Did you or your child miss s chool or work because of a health problem that could have been avoided? No 10/26/2019 Sex and Gender Information Value Date Recorded Sex Assigned at Not on file Legal Sex Male 6:08 PM EDT Gender Identity Not on file Sexual Orientation Not on file Last Filed Vital Signs Vital Sign Reading Time Taken Comments Blood Pressure 140/70 10/26/2019 3:02 PM EDT Pulse 87 08/31/2019 4:20 PM EDT Temperature 36 ??C (96.8 ??F) 08/31/2019 4:20 PM EDT Respiratory Rate - - Oxygen Saturation 97% 08/31/2019 4:20 PM EDT Inhaled Oxygen Concentration - - Weight 83.2 kg (183 lb 6 oz) 10/26/2019 3:02 PM EDT Height 166.4 cm (5' 5.5 ) 10/26/2019 3:02 PM EDT Body Mass Index 30.05 10/26/2019 3:02 PM EDT Plan of Treatment Health Maintenance Due Date Last Done Comments Consider Men B Vaccine (1 of 2 - Bexsero 2-dose series) 2015 DTaP,Tdap,and Td Vaccines (7 - Td or Tdap) 03/27/2021 03/27/2011, 01/18/2005, 03/19/2001, Additional history exists Influenza Vaccines (#1) 2023 04/10/20 17, 03/06/2016, 02/15/2015, Additional history exists COVID-19 Vaccine ( season) 2023 06/19/2021, 09/02/2020, 08/12/2020 Hepatitis B Vaccines Completed 09/23/2000, 01/19/2000, 1999 HIB Vaccines Completed 03/19/2001, 06/13, 05/13/2000, Additional history exists Pneumococcal Vaccine Completed 03/19/2001, 06/25/2000, 05/13/2000, Additional history exists MMR Vaccines Completed 12/21/2003, 01/02/2001 IPV Vaccines Completed 01/18/2005, 09/13, 05/13/2000, Additional history exists Varicella Vaccines Completed 02/27/2007, 01/02/2001 HPV Vaccines Completed 03/01/2014, 10/13, 08/27/2013 Hepatitis A Vaccines Completed 03/06/2016, 06/09/19 16 Meningococcal Vaccine Completed 03/06/2016, 011 Men B Vaccine Aged Out No longer elig vipin based on patient's age to complete this topic Insurance [facility] [place] [id number] [facility]
== END 2024-06-23 09:39 | disposition home or self-care (01) ==
LOC: HO.HMCFM 08:41
PROVIDERS: PCP Family Medicine; Visit Provider Family Medicine
DX: Z00.00 Encounter for general adult medical examination without abnormal findings (principal); G47.30 Sleep apnea, unspecified; J30.2 Other seasonal allergic rhinitis

== ENCOUNTER → 2024-06-23 08:40 | Outpatient (BNVA) | payer BC, SELFPAY | PROVIDERS: PCP Family Medicine; Visit Provider Family Medicine | DX: Z00.00 Encounter for general adult medical examination without abnormal findings (principal); G47.30 Sleep apnea, unspecified; J30.2 Other seasonal allergic rhinitis | CPT/HCPCS: 96127 ==

== ENCOUNTER 2024-06-23 10:22 | Outpatient (REF) | payer BC, SELFPAY ==
[2024-06-23 11:45] LABS: Appearance Urine Clear; Color Urine Yellow; Glucose Urine UA Negative (Negative); Leukocyte Esterase Urine Negative (Negative); Nitrite Urine Negative (Negative); Specific Gravity - Urine 1.015 (1.005-1.025); Urine Blood Negative (Negative); Urine Ketones Negative (Negative); Urine Protein Negative (Neg-Trace)
--- OUTSIDE RECORDS SUMMARY | 2024-06-23 12:18 | XMS_ITS | Encounter Summary ---
Author Organization [facility] Address [address] [place] [address] Phone Care Team Providers Care Inside Phone Sales Name Role Phone Kb Avalos MD Primary Care Provider + [phone] Encounter Details Date Type Department Care Team (Late st Contact Info) Description 09/01/2017 Conversion [facility]counter [facility] [address] [place] [address] Kb Avalos MD [address] [place] [address] Social History Tobacco Use Types Packs/Day Years [...] on filedocumented in this encounter Care Teams Inside Phone Sales Relationship Specialty Start Date End Date Kb Avalos MD [address] [place] [address] PCP - General 08/21/17 03/29/24 documented as of this encounter
--- OUTSIDE RECORDS SUMMARY | 2024-06-23 12:18 | XMS_ITS | Encounter Summary ---
Author Organization [facility] Address [address] [place] [address] Phone Care Team Providers Care Pharmacy Innovation Assistant Name Role Phone Kb Avalos MD Primary Care Provider [phone] Encounter Details Date Type Department Care Team (Late st Contact Info) Description 05/04/2009 Documentation [facility] Family Medicine [address] [place] [address] Family Medicine, Physician [address], [place] [address] Social History Tobacco Use Types Packs/Day Years [...] on filedocumented in this encounter Care Teams Pharmacy Innovation Assistant Relationship Specialty Start Date End Date Kb Avalos MD 7 [facility] [place] [address] PCP - General 08/21/17 03/29/24 documented as of this encounter
--- OUTSIDE RECORDS SUMMARY | 2024-06-23 12:18 | XMS_ITS | Clinical Summary ---
Author Organization [facility] Address [address] [place] [address] Phone Care Team Providers Care Cnc Machine Operator Name Role Phone Unavailable Primary Care Provider [...] Health Maintenance Due Date Last Done Comments DTaP,Tdap,and Td Vaccines (7 - Td or [...] B Vaccine Aged Out No longer elig drissle based on patient's age to complete this topic Insurance [facility] [place] [id number] [facility] [place] [id number]
[2024-06-23 12:42] LABS: Creatinine Urine 92.62 mg/dL; Microalbumin Urine < 5.0 mg/L
[2024-06-23 12:58] LABS: Alanine Aminotransferase 85 U/L (0-40); Albumin Level 4.9 g/dL (3.5-5.0); Alkaline Phosphatase 72 U/L (39-117); Anion Gap 12 (12-20); Aspartate Amino Transferase 49 U/L (5-37); Bilirubin Total 0.4 mg/dL (0.0-1.0); Blood Urea Nitrogen 17 mg/dL (9-16); Calcium 9.9 mg/dL (8.4-10.2); Carbon Dioxide 26 mmol/L (22-29); Chloride 105 mmol/L (96-108); Cholesterol 195 mg/dL (<200); Estimated Glomerular Filt Rate > 60; Glucose Fasting 73 mg/dL (60-99); HDL Cholesterol 43 mg/dL (>40); LDL Cholesterol Calculated 109 mg/dL (<100); Potassium 3.9 mmol/L (3.3-5.1); Sodium 139 mmol/L (135-145); Total Protein 8.3 g/dL (6.5-8.0); Triglycerides 216 mg/dL (<150)
[2024-06-23 13:04] LABS: HBc Num1 0.26 S/CO (0.00-0.79); HBsAGNum1 0.28 S/CO (0.00-0.99); HIV AB/AG Nonreactive (Nonreactive); Hepatitis B Core Antibody Nonreactive (Nonreactive); Hepatitis B Surface Antigen Negative (Negative); ~HepC Num1 0.27 S/CO (0.00-0.79); ~Hepatitis B Surface Antibody NONREACTIVE (Nonreactive); ~Hepatitis C Antibody Nonreactive (Nonreactive)
[2024-06-23 13:05] LABS: Syphilis Screen Nonreactive (Nonreactive)
[2024-06-23 13:06] LABS: TSH reflex Free T4 5.55 uIU/mL (0.32-4.0)
[2024-06-23 14:34] LABS: Free T4 (Free Thyroxine) 0.89 ng/dL (0.71-1.85)
== END 2024-06-23 10:23 | disposition home or self-care (01) ==
LOC: HO.WFDLDS 10:22
PROVIDERS: Visit Provider Family Medicine
DX: Z00.00 Encounter for general adult medical examination without abnormal findings (principal); I10 Essential (primary) hypertension; Z11.3 Encounter for screening for infections with a predominantly sexual mode of transmission
CPT/HCPCS: 36415; 80053; 80061; 81003; 82043; 82570; 84439; 84443; 86704; 86706; 86780; 86803; 87340; 87389

== ENCOUNTER 2024-07-06 06:44 | Outpatient (REF) | payer BC, SELFPAY ==
[2024-07-06 07:53] LABS: Anion Gap 11 (12-20); Blood Urea Nitrogen 13 mg/dL (9-16); Calcium 9.8 mg/dL (8.4-10.2); Carbon Dioxide 28 mmol/L (22-29); Chloride 105 mmol/L (96-108); Estimated Glomerular Filt Rate > 60; Glucose Random 94 mg/dL (60-115); Sodium 140 mmol/L (135-145)
[2024-07-06 08:09] LABS: Free T4 (Free Thyroxine) 0.82 ng/dL (0.71-1.85); Thyroid Stimulating Hormone 8.02 uIU/mL (0.32-4.0)
[2024-07-07 05:19] LABS: Triiodothyronine T3 Total 93 ng/dL (76-181)
== END 2024-07-06 06:45 | disposition home or self-care (01) ==
LOC: HO.LAB 06:44
PROVIDERS: PCP Family Medicine; Visit Provider Family Medicine
DX: Z00.00 Encounter for general adult medical examination without abnormal findings (principal); E03.9 Hypothyroidism, unspecified
CPT/HCPCS: 36415; 80048; 84439; 84443; 84480

== ENCOUNTER 2024-07-23 16:12 | Outpatient (AMB) | payer BC, SELFPAY ==
--- NOTE | 2024-07-23 16:10 | A.OFFPC_ITS ---
Intake Visit Reasons: f/u CPE-labs via telemed Intake Note: patient is scheduled for lab review Electrical Logging Engineer Required: No Allergies No Known Allergies Allergy (Verified 07/23/24 16:10) Medication List - Last Reconciled 07/23/24 by Filiberto Plaza MD epinephrine (EpiPen 2-James) 0.3 mg (0.3 mL) IM Q4H PRN 30 days levothyroxine 50 mcg PO DAILY 90 days Tobacco use date assessed: 06/23/24 Dental Screening Dental Screen Date: 06/23/24 HPI f/u CPE-labs via telemed HPI Details 23 y/o male presents to f/u CPE-labs via telemedicine. Labs drawn 07/06/24. Reviewed labs with pt. TSH elevated at 8.02. Elevated liver enzymes - AST 49, ALT 85. Triglycerides 216. TC 195. LDL 109. HDL 43. 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 Abdirashid Curtis, Suzie Lacy, Jhonny Babcock and colleagues, with an educational kodi from [email or web address]. Review of Systems Const Denies chills, Denies fatigue, Denies fever(s), Denies headache(s) and Denies weakness ENT Denies dizziness and Denies headache(s) Card Denies dyspnea Resp Denies cough, Denies dyspnea, Denies wheezing and Denies other (shortness of breath) Musc Denies numbness and Denies tingling Neuro Denies dizziness, Denies headache(s), Denies numbness, Denies tingling and Denies weakness Psych Denies anxiety and Denies depression Endo Denies fatigue Aller/Immun Denies wheezing Physical exam (Primary Care) Tobacco/Smoking Status: Tobacco use Status Tobacco use date assessed 06/23/24 07/23/24 16:11 Patient Tobacco Use Status Never used Tobacco 07/23/24 16:11 e-Cigarette/Vaping Use Never Used 07/23/24 16:11 Thrive Assessment: Date of Thrive Assessment Date Thrive assessed 06/23/24 07/23/24 16:11 Telehealth Telehealth Telehealth Platform: Telephone Location of provider rendering services: practice address Location of patient: address on file Patient Identification confirmed using: Name, : Yes Telehealth method: voice only Patient verbally consented to treatment: Yes Patient verbally consented to billing insurance company: Yes Patient informed of any privacy concerns related to visit: Yes Minutes spent on Phone/Video with Pt.: 8 Coding Level of Care Code Tele Est Pt Level 2 (26126) Diagnoses Hypothyroidism E03.9 Elevated liver enzymes R74.8 Elevated LDL cholesterol level E78.00 Sleep apnea G47.30 Assessment & Plan Assessment & Plan (1) Hypothyroidism: Code(s): E03.9 - Hypothyroidism, unspecified Category: Medical Plan: Symptomatic?subacute?hypothyroidism. Patient?also?notes?that?he?has?a?strong?family?history?of?hypothyroidism Starting?levothyroxine?and?will?recheck?levels?at?next?visit. (2) Elevated liver enzymes: Code(s): R74.8 - Abnormal levels of other serum enzymes Category: Medical Plan: Mildly?elevated?liver?enzymes Encouraged?weight?loss,?good?hydration,?avoid?alcohol?and?Tylenol Will?recheck?at?blood?draw (3) Elevated LDL cholesterol level: Code(s): E78.00 - Pure hypercholesterolemia, unspecified Category: Medical Plan: Mild?LDL?elevation Work?at?weight?loss?in?diet?low?in?saturated?fats?and?cholesterol (4) Sleep apnea: Code(s): G47.30 - Sleep apnea, unspecified Category: Medical Plan: Patient?says?he?was?not?contacted?by?sleep?medicine. Will?ask?medical?actuarial assistant?to?help?get?him?scheduled. Orders: Orders Free T4 (Free Thyroxine) Today E03.9 - Hypothyroidism, unspecified Comprehensive Met. Panel Today R74.8 - Abnormal levels of other serum enzymes Thyroid Peroxidase Antibodies Today R79.89 - Other specified abnormal findings of blood chemistry Thyroid Stimulating Hormone Today E03.9 - Hypothyroidism, unspecified Triiodothyronine T3 Total Today E03.9 - Hypothyroidism, unspecified Medications: New levothyroxine 50 mcg PO DAILY 90 tabs 3RF 90 days
--- OUTSIDE RECORDS SUMMARY | 2024-07-23 18:01 | XMS_ITS | Encounter Summary ---
Author Organization [facility] Address [address] [place] [address] Phone Care Team Providers Care Instructor Private Name Role Phone Kb Avalos MD Primary Care Provider [phone] Encounter Details Date Type Department Care Team (Late st Contact Info) Description 05/04/[address] [facility] [place] [address] [place] [address] Family Medicine, Physician [address], [place] [id number] Social History Tobacco Use Types Packs/Day Years [...] on filedocumented in this encounter Care Teams Instructor Private Relationship Specialty Start Date End Date Kb [facility]valos [facility] [place] [address] PCP - General 08/21/17 03/29/24 documented as of this encounter
--- OUTSIDE RECORDS SUMMARY | 2024-07-23 18:01 | XMS_ITS | Clinical Summary ---
Author Organization [facility] Address [address] [place] [address] Phone Care Team Providers Care Air Pollution Control Engineer Name Role Phone Unavailable Primary Care Provider [...] patient's age to complete this topic Insurance [facility] Address: [address] [place] [address] [place] [id number] [facility] Address: [address] [place] [address] [place] [phone]
--- OUTSIDE RECORDS SUMMARY | 2024-07-23 18:01 | XMS_ITS | Encounter Summary ---
Author Organization [facility] Address [address] [place] [address] Phone Care Team Providers Care Chief Yeoman Name Role Phone Kb Avalos MD Primary Care Provider + [phone] Encounter Details Date Type Department Care Team (Late st Contact Info) Description 09/01/2017 Conversion Encounter [facility] [address] [place] [address] Kb Avalos MD [address] [place] [address] Social History Tobacco Use Types Packs/Day Years [...] on filedocumented in this encounter Care Teams Chief Yeoman Relationship Specialty Start Date End Date Kb Avalos MD [address] [place] [address] PCP - General 08/21/17 03/29/24 documented as of this encounter
== END 2024-07-23 17:05 | disposition home or self-care (01) ==
LOC: HO.HMCFM 16:12
PROVIDERS: PCP Family Medicine; Visit Provider Family Medicine
DX: E03.9 Hypothyroidism, unspecified (principal); R74.8 Abnormal levels of other serum enzymes; E78.00 Pure hypercholesterolemia, unspecified; G47.30 Sleep apnea, unspecified

== ENCOUNTER → 2024-07-23 16:12 | Outpatient (BNVA) | payer BC, SELFPAY | PROVIDERS: PCP Family Medicine; Visit Provider Family Medicine ==